=== PATIENT | male | born 1960 | race Caucasian/White ===

== ENCOUNTER 2018-06-13 11:26 | Inpatient (IN) ==
--- NOTE | 2018-06-13 12:03 | Diag Imaging Result Doc PS360 ---
KUB ABDOMEN - 06/13/2018 INDICATION: abd pain COMPARISON: None FINDINGS: For some reason only a single upright exam was performed, no supine image. There is severe hyperinflation of the colon. There is significant constipation of the proximal abdomen. No obvious small bowel dilation. IMPRESSION: Severe constipation of the proximal colon. Nonspecific hyperinflation of the colon. No obvious bowel obstruction. Electronically signed by Kevin Miller 06/13/2018 12:00 PM
--- NOTE | 2018-06-13 17:35 | PROVIDER DOCUMENTATION ---
This chart was entered by Dulce Bernard Scribe, acting as scribe for Jacques Delgado MD. HPI-Abdominal Pain/GI Problem - General Chief Complaint: Abdominal Pain Stated Complaint: POST OP COMPLAINT Time Seen by Provider: 06/13/18 16:32 Source: patient - History of Present Illness-ABD Nature of Presenting Problems: 57 yom presents to the ed with c/o abdominal pain RLQ and constipation. pt had recent prostate sx and is healing well from that. pt c/o is abdominal pain secondary to constipation; STATES LAST BOWEL MOVEMENT WAS THIS PAST SUNDAY. STATES HE TAKES HYDROCODONE FOR THE PAIN AND LAST DOSE WAS TODAY IN THE MORNING. DUE TO NURSING SHORT STAFFED, PATIENT WAS INITIALLY SEEN IN THE TRIAGE AND SITUATION WAS EXPLAINED TO THE PATIENT WHO WAS UNHAPPY WITH THE WAIT TIME (~5HR IN WAITING AREA); DURING THE ENCOUNTER IN TRIAGE, RN INFORMED A BED WAS AVAILABLE AND PATIENT WAS BROUGHT BACK INTO ROOM 10 IMMEDIATELY WHERE I CONTINUED THE ENCOUNTER. Abdominal Pain Onset Location: reports: RLQ Pain Radiation: reports: no radiation Quality of Pain: reports: cramping Severity in ED: reports: moderate Onset/Duration: reports: 4 days ago Timing: reports: still present, constant Activities at Onset: reports: light activity Modifying Factors: improves with: nothing Associated Symptoms: reports: constipation. denies: back/neck pain, chest pain, diarrhea, nausea, seizure, shortness of breath, vomiting, weakness Last BM: 4 days ago Dark Stools Present?: reports: none noticed Rectal Bleeding: reports: none # of Diarrhea Episodes: 0 Rectal Pain: reports: none # of Vomiting Episodes: 0 Emesis Description: reports: none Bruising or Bleeding Gums?: No Similar Symptoms Previously?: Yes Recently seen or treated by another doctor?: Yes (recent sx) Review of Systems - Adult - REVIEW OF SYSTEMS - ADULT Constitutional: denies: chills, fever Eyes: reports: no symptoms reported Ears, Nose, Mouth & Throat: reports: no symptoms reported Cardiovascular: denies: chest pain, palpitations Respiratory: denies: cough, shortness of breath, wheezing Gastrointestinal: reports: see HPI, abdominal pain, constipation. denies: diarrhea, nausea, poor appetite, vomiting Genitourinary: reports: no symptoms reported Musculoskeletal: reports: no symptoms reported Integumentary: reports: no symptoms reported Neurological: denies: dizziness/vertigo, headache/migraines Psychiatric: reports: no symptoms reported Endocrine: reports: no symptoms reported Hematologic/Lymphatic: reports: no symptoms reported Allergic/Immunologic: reports: no symptoms reported All Other Systems: Reviewed and Negative Past History - Adult - PAST MEDICAL HISTORY-ADULT Review of Records: reports: Old Records Reviewed, Nursing Assessment Review, Medications Reviewed, Social history reviewed & non-contributory. Major Childhood Illnesses: reports: denies history Cardiovascular: reports: denies history Respiratory: reports: denies history Gastrointestinal: reports: GERD, other (S/P APPENDECTOMY) Genitourinary: reports: prostate cancer Musculoskeletal: reports: denies history Neurological: reports: denies history Endocrine/Immune: reports: denies history Other Conditions: reports: denies history - PRIOR SURGERIES/PROCEDURES Surgical/Procedure History: reports: recent surgery (prostate) - IMMUNIZATION STATUS Childhood Immunizations: See Nurse Assessment Flu Vaccine: See Nurse Assessment - FAMILY HISTORY Family History: reviewed, not pertinent - SOCIAL HISTORY Smoking: denies Substance Use: denies Living Situation: family Physical Exam-General - PHYSICAL EXAM-ADULT Initial Vital Signs Reviewed: Yes - CONSTITUTIONAL General Appearance: appears well, alert, mild distress - EYES Eyes: PERRL/EOMI, pink conjunctivae - HEAD, EARS, NOSE, MOUTH & THROAT HENMT: moist mucous membranes, normal ENT inspection - NECK Neck: full range of motion, supple, normal inspection - RESPIRATORY Respiratory: chest non-tender, lungs clear, normal breath sounds - CARDIOVASCULAR Cardiovascular: normal peripheral pulses, no edema, no gallop, no JVD, no murmur , tachycardia (106) - GASTROINTESTINAL (ABDOMEN) Abdominal Exam: soft, abnormal bowel sounds, guarding, tenderness (rlq), other (well healed scars from recent sx to prostate). negative: distended - LYMPHATIC Lymphatic: no adenopathy - MUSCULOSKELETAL Back Exam: normal inspection, no CVA tenderness, no vertebral tenderness Extremity: normal range of motion, non-tender, normal inspection, no pedal edema , no calf tenderness, normal capillary refill, pelvis stable - SKIN Integumentary: normal color, normal turgor, diaphoresis - NEUROLOGIC Neurologic: grossly normal, no motor/sensory deficits - PSYCHIATRIC Psych/Mental Status: normal mood/affect, normal thought content, normal thought process, oriented x 3 Progress - PLAN OF CARE/RESULTS Progress/Plan/Lab Results: Vital Signs - 8 hr 06/13/18 11:31 Temperature 98.1 F Pulse Rate 106 H Respiratory Rate 22 Blood Pressure 144/105 O2 Sat by Pulse Oximetry 97 Orders Category Date Time Status KUB ABDOMEN [RAD] Stat Exams 06/13/18 11:35 Completed - REASSESSMENT Reassessment #1 Time Reassessed: 17:32 Status: other (AT THE END OF MY ENCOUNTER AFTER I EXPALINED THE PATIENT OF MY PLANS (CT ABDOMEN, HYDRATION, AND RELISTOR), PATIENT'S PCP WALKED IN AND EVALUATED THE PATIENT AND STATES HE WILL GO AHEAD AND PLACE IN ORDERS AND DIRECTLY ADMIT HIM TO THE HOSPITAL.) - XRAY 1 XRAY Study: Abdomen ([facility] [address], [address], [place] [address] Department of Imaging Patient: BINA DUBON RADM Date: 06/13/18#: [id number] : 1960DM Status: PRE ERAcct#: [id number] Age/Sex: 57/MRoom/Bed: Loc: ED Ordering Physician: Mohit Werner MD Family Physician: Mohit Damon MD Reason for Procedure: abd pain Signed KUB ABDOMEN - 06/13/2018 INDICATION: abd pain COMPARISON: None FINDINGS: For some reason only a single upright exam was performed, no supine image. There is severe hyperinflation of the colon. There is significant constipation of the proximal abdomen. No obvious small bowel dilation. IMPRESSION: Severe constipation of the proximal colon. Nonspecific hyperinflation of the colon. No obvious bowel obstruction. Electronically signed by Kevin Miller 06/13/2018 12:00 PM 06/13/18 1200 Interpreting Physician: Kevin Miller MD Dictated Date/Time: 06/13/18 1200 cc: Mohit Werner MD; Mohit Damon MD) Departure - Departure Date of Disposition Decision: 06/13/18 Time of Disposition Decision: 17:22 DIAGNOSIS: Constipation in male Abdominal pain Qualifiers: Abdominal location: right lower quadrant Qualified Code(s): R10.31 - Right lower quadrant pain Disposition: ADMITTED INPATIENT 09 Certified Medical Emergency: Emergent Condition: Stable Additional Freetext Instructions: ED Follow Up Instructions: You have been treated by a care provider in the Emergency Department. These instructions are being provided to you so you can have an understanding of how to care for yourself upon discharge. Upon discharge from the Emergency Department, you are responsible for making arrangements for follow-up care by a physician of your choice. Take all prescribed medications as directed. Return to the Emergency Department immediately for any new or worsening symptoms. You may call the Physician Referral phone number at [phone] to obtain a list of Physicians who are taking new patients. Referrals and Follow-Ups: Mohit Damon MD [Primary Care Provider] - - Critical Care Note This patient required my direct & personal management of CC.: No Attestation - Physician/ BOBBI Attestation Patient care was provided by Advanced Practice Provider:: No The physician spent face to face time with patient:: Yes Advanced Practice Provider documentation review:: Supervising physician onsite and consulted in the evaluation and care of this patient. The physician did have a face to face encounter with the patient. This chart was documented by the indicated scribe, (Dulce Bernard Scribe) and accurately reflects the services I performed and decisions made by me, Jacques Delgado MD, as attested by the provider's signature.
[2018-06-13] MEDS: DILAUDID IV PRN ×2 (18:03→23:53)
[2018-06-13 18:16] LABS: AGAP 16; BUN 14 mg/dL (8-22); CALCIUM 9.7 mg/dL (8.8-10.2); CHLORIDE 100 mmol/L (98-107); COSMO 277; CREATININE 0.9 mg/dL (0.7-1.2); ESTIMATED GFR > 60; GLUCOSE 111 mg/dL (70-104); POTASSIUM 3.9 mmol/L (3.5-5.1); SODIUM 138 mmol/L (136-145); TCO2 22 mmol/L (25-35)
[2018-06-13] MEDS ORDERED: DILAUDID IV PRN (18:39)
[2018-06-13] MEDS ORDERED: LINZESS PO ONE (18:39)
[2018-06-13] MEDS ORDERED: ZOFRAN IV PRN (18:39)
--- NOTE | 2018-06-13 19:20 | HISTORY AND PHYSICAL ---
CHIEF COMPLAINT: Abdominal pain. PRESENT ILLNESS: This is the first recent [facility] admission for this 57-year-old, white man, who presents to the emergency room with a couple day history of increasing abdominal pain and no bowel movement. CT scan of his abdomen revealed constipation, and abdominal distention, but no obstruction. He had prostate surgery about a week ago with total prostatectomy. There was no evidence of metastatic disease. He had the surgery in [place]. He is admitted for pain control and for both evaluation and treatment of his constipation. HOME MEDICINES: None. ALLERGIES: None known. REVIEW OF SYSTEMS: Some nausea and heaving, but no vomiting today. He has had no melena or hematochezia. SOCIAL HISTORY: and lives with his . No history of smoking or alcohol usage. PHYSICAL EXAMINATION: VITAL SIGNS: Temperature 98, heart rate 88, respirations 25, blood pressure 142/77, O2 saturation on room air 98%. GENERAL: Patient is a well-developed, well-nourished white man in moderate distress with generalized abdominal discomfort. HEENT: Pupils equal, round, and reactive to light. Tympanic membranes without inflammation. Pharynx benign with no erythema or exudate. NECK: Supple with no mass or lymphadenopathy. HEART: Regular in rate and rhythm with no murmur, rub or gallop. LUNGS: Clear with no rales or rhonchi. ABDOMEN: Muscles tense, generalized tenderness to palpation. There is no rebound tenderness. EXTREMITIES: No cyanosis, clubbing, or edema. RECTAL EXAM: Deferred. IMPRESSION: 1. Generalized abdominal pain. 2. Constipation postop. 3. Recent prostatectomy for prostate cancer. PLAN: Admit for further evaluation and treatment. cc: Mohit Damon MD
[2018-06-13] MEDS: NS 1,000 ML IV SCH (20:30)
[2018-06-13] MEDS ORDERED: TUMS EXTRA STRENGTH PO ONE (20:53)
[2018-06-14 04:38] LABS: URINE SOURCE CATH
[2018-06-14 04:42] LABS: UR EPITHELIAL CELLS <10 /HPF (<10); URINE BACTERIA NEGATIVE /HPF; URINE WBC <10 /HPF (<10)
[2018-06-14 04:48] LABS: BILIRUBIN URINE NEGATIVE (NEGATIVE); BLOOD URINE MODERATE (NEGATIVE); COLOR YELLOW; GLUCOSE URINE NEGATIVE (NEGATIVE); KETONE URINE 80 mg/dL (NEGATIVE); LEUKOCYTES URINE NEGATIVE (NEGATIVE); NITRITE URINE NEGATIVE (NEGATIVE); PROTEIN URINE TRACE mg/dL (NEGATIVE); SP GRAVITY URINE 1.024; TURBIDITY URINE CLEAR (CLEAR); UROBILINOGEN URINE NORMAL (NORMAL)
[2018-06-14] MEDS: DILAUDID IV PRN ×2 (05:53→13:41)
[2018-06-14] MEDS ORDERED: MOVANTIK PO SCH (07:00)
[2018-06-14] MEDS ORDERED: LINZESS PO SCH (07:00)
[2018-06-14] MEDS ORDERED: CITRATE OF MAGNESIA PO ONE (07:33)
[2018-06-14] MEDS: NS 1,000 ML IV SCH (08:07)
--- NOTE | 2018-06-14 08:13 | PROGRESS NOTE ---
DATE: 06/14/2018 OBJECTIVE: Vital signs: Temperature 97.7 degrees, heart rate 78, respirations 20, blood pressure 118/68, O2 saturation on room air 94%. General: The patient's pain is much improved this morning. Abdomen: Is soft. He had a small bowel movement early a.m. Chest: Is clear. Genitourinary: Jett shows no gross blood. Jett had been placed after his prostate surgery and is to be removed early next week. PLAN: Increase diet, ambulate, and give Mag citrate. cc: Mohit Damon MD
[2018-06-14 16:06] VITALS: BP 130/71
--- NOTE | 2018-06-14 18:57 | DISCHARGE SUMMARY ---
ADMISSION DATE: 06/13/2018 DISCHARGE DATE: 06/14/2018 FINAL DIAGNOSES: 1. Severe constipation. 2. Colonic distention with moderately severe abdominal pain. 3. Recent robotic prostatectomy. DISCHARGE MEDICATIONS: Docusate sodium b.i.d., and Tylenol p.r.n. HOSPITAL COURSE: This is the first recent [facility] admission for this 57-year-old white man, who presented to the emergency room several days following prostate surgery with moderately severe abdominal pain. Abdominal films revealed severe constipation in the proximal colon and distention of the distal colon. There was no definite evidence of obstruction. He had Jett in place from surgery, which is to be removed next week. Initial laboratory: Sodium 138, potassium 3.9, BUN 14, creatinine 0.9, glucose 111, calcium 9.7. Urinalysis revealed 10-20 RBCs, but less than 10 WBCs. Pain was controlled with intravenous Dilaudid. He was given Linzess, Movantik, and then today some magnesium citrate. He had several good bowel movements and abdominal pain has almost resolved. He has been ambulatory and eating fairly well. DISPOSITION: He is discharged home on the above medications, to be seen back in the office in 1 week or as needed for followup. cc: Mohit Damon MD
== END 2018-06-14 18:31 | disposition home or self-care (01) | DRG 392 ==
LOC: ED 11:26 → 4N 18:14
PROVIDERS: ADMIT Family Medicine; ATTEND Family Medicine
CPT/HCPCS: 74000; 74018; 80048; 81001; 96374; 99285; A9270; J1170; J2405; J7030